=== PATIENT | female | born 1955 | race Caucasian/White ===

== ENCOUNTER 2019-11-07 16:09 | Outpatient (CLI) | payer MEDICARE, MEDICAID, SELFPAY ==
[2019-11-07 17:02] LABS: Alanine Aminotransferase 45 U/L (0-33); Albumin Level 3.9 g/dL (3.5-5.2); Alkaline Phosphatase 103 IU/L (35-105); Anion Gap 16.9 (5-19); Aspartate Amino Transferase 23 U/L (0-32); Blood Urea Nitrogen 15 mg/dL (8-23); Calcium 9.3 mg/dL (8.5-10.5); Carbon Dioxide 25 mmol/L (22-29); Chloride 95 mmol/L (98-107); Globulin 3.3 g/dL (1.3-4.6); Glomerular Filtration Rate 72.7 mL/min (90-130); Glucose 263 mg/dL (65-115); NT Pro B Type Natriuretic Pept 480 pg/mL (0-125); Osmolality Calculated 281 mOsm/kg (285-295); Potassium 3.9 mmol/L (3.5-5.1); Sodium 133 mmol/L (136-145); Total Bilirubin 0.2 mg/dL (0.15-1.2); Total Protein 7.2 g/dL (6.6-8.7)
[2019-11-07 17:31] LABS: Estmated Average Glucose 252; Hemoglobin A1C 10.4 % (4.0-6.0)
== END 2019-11-07 16:10 | disposition home or self-care (01) ==
PROVIDERS: Family Provider Family Medicine; Visit Provider Family Medicine
DX: E11.9 Type 2 diabetes mellitus without complications (principal)
CPT/HCPCS: 80053; 83036; 83880

== ENCOUNTER → 2020-03-18 15:37 | Outpatient (BNVA) | payer MEDICARE, MEDICAID, SELFPAY | PROVIDERS: Family Provider Family Medicine; PCP Family Medicine; Visit Provider Internal Medicine Cardiovascular Disease | DX: I50.22 Chronic systolic (congestive) heart failure (principal); R06.02 Shortness of breath; I50.33 Acute on chronic diastolic (congestive) heart failure; R07.9 Chest pain, unspecified; I25.118 Atherosclerotic heart disease of native coronary artery with other forms of angina pectoris; I10 Essential (primary) hypertension | CPT/HCPCS: 80048; 83880 ==

== ENCOUNTER 2020-04-08 09:53 | Outpatient (CLI) | payer MEDICARE, MEDICAID, SELFPAY ==
[2020-04-08 10:13] VITALS: BMI 32.9
--- NOTE | 2020-04-08 10:34 | NMCV_ITS ---
NM doc perf SPECT r/s* [id number] Ellyn Ferreira Age: 65 Gender: F : 1955 Exam Date: 04/08/2020 11:21 Ordering Phys: Arun White MD ([email or web address]) Technologist: SINTIA Gaming Exam Location: [facility] Indications: CHEST PAIN STRESS TEST [facility] IMAGE PROTOCOL Rest/Stress 1 Lexiscan Day Radiopharmaceutical Dose (mCi) Administration Site Administered by Rest: Tc-99m 11.0 IV SINTIA Gaming Sestamibi Stress:Tc-99m 32.5 IV SINTIA Sutton Sestamibi Rest: 08-Apr-2020 60 Discovery 630 Stress: 08-Apr-2020 30 Discovery 630 0.4mg Lexiscan. Supine position only as patient was unable to lay prone. SPECT RESULTS Technical Quality: Good Raw Data Analysis: Normal Image Corrections: Patient motion artifact - motion correction applied to stress images. Summed Stress Score: 16 Summed Rest Score: 15 Summed Difference Score: 4 PERFUSION FINDINGS Moderate to large area of decreased uptake in the mid and apical anterior, mid anteroseptal, mid inferolateral and apical segments. Some reversibility was noted in the inferolateral, and inferior FUNCTIONAL RESULTS (calculated via Gated SPECT) Stress Image LV EF (%): 38 Stress EDV (mL):107 TID: 0.95 Stress ESV (mL):66 FUNCTIONAL FINDINGS: Segmental wall motion analysis revealing severe diffuse hypokinesia of the LV apex and septum. Mild diffuse hypokinesia of the inferior wall segments IMPRESSIONS 1. Myocardial perfusion imaging revealing areas of persistent decreased uptake in the anterior, anteroseptal, inferior, inferolateral and apical regions with some reversibility in the inferior and inferolateral regions, suggestive of myocardial scarring in the distribution of all the 3 coronary arteries with small areas of ischemia in the distribution of the right coronary artery/circumflex artery. 2. Diminished ejection fraction of 38%. 3. Multiple wall motion abnormalities as mentioned above. 4. Mildly dilated LV cavity with an end-systolic volume of 66 mL. No similar previous studies are available for comparison Dr Arun White MD [facility] (Electronically Signed) Final Date: 08 April 2020 19:42 S
--- NOTE | 2020-04-08 10:34 | ECG_ITS ---
[facility] Test Date: 2020-04-08 Pat Name: Ellyn Ferreira Department: Room: Gender: Female [employer] Training Agent: : 1955 Requested By: Arun White Order Number: [id number] Steve MD: Arun White M.D. Interpretive Statements NAME OF STUDY: LEXISCAN SESTAMIBI STRESS TEST INDICATION: Chest Pain; Shortness of Breath, PROCEDURE: At the baseline, the EKG revealed sinus tachycardia with a poor R wave progression. Possible old septal myocardial infarction. Some nonspecific T wave changes in the high lateral leads. The baseline blood pressure was 120/74 mm Hg with a heart rate of 96 beats/min. Lexiscan was infused over a period of 20 seconds. A total of 0.4 milligrams of Lexiscan was infused. The stress phase was continued for a total of 5 minutes. Heart rate at the end of the stress phase was 107 with a blood pressure 134/78. The EKG at the peak infusion revealed no significant changes. Sestamibi was injected 20 seconds after the Lexiscan infusion. Blood pressure at the end of the recovery phase was 136/63 with a heart rate of 104 per minute. CONCLUSION: 1. No significant EKG changes with the LexiScan infusion 2. No LexiScan induced chest pain or cardiac arrhythmia 3. Normal blood pressure and heart rate response 4. Sestamibi/sestamibi perfusion scan pending; see separate report. Electronically Signed On 04-13-2020 9:16:26 PROGRAM SUPPORT ASSISTANT by Arun White M.[email or web address]
[2020-04-08] MEDS: regadenoson 0.4 Mg/5 ml Syringe IVP (11:59)
[2020-04-08 12:18] VITALS: BP 117/67; PULSE 105
== END 2020-04-08 09:54 | disposition home or self-care (01) ==
LOC: CDL 09:57
PROVIDERS: PCP Family Medicine; Visit Provider Internal Medicine Cardiovascular Disease
DX: R07.9 Chest pain, unspecified (principal); R06.02 Shortness of breath
CPT/HCPCS: 78452; 93017; A9500; J2785